=== PATIENT | male | born 1940 | race Caucasian/White ===

== ENCOUNTER → 2016-08-21 | Outpatient (CLI) | payer MEDICARE | END | disposition home or self-care (01) | LOC: PETCFH 12:37 | PROVIDERS: ATTEND Urology | DX: C61 Malignant neoplasm of prostate (principal); I25.10 Atherosclerotic heart disease of native coronary artery without angina pectoris; N20.0 Calculus of kidney; Z98.890 Other specified postprocedural states; Z00.6 Encounter for examination for normal comparison and control in clinical research program | CPT/HCPCS: 78816; A9580 ==